=== PATIENT | female | born 1960 | race Hispanic/Latino ===

== ENCOUNTER 2022-09-09 13:28 | Emergency (ER) | payer BC, SELFPAY ==
[2022-09-09 13:42] VITALS: BP 116/68; PULSE 65; RESP 16; TEMP 36.6; O2SAT 100
--- NOTE | 2022-09-09 14:13 | ED.SKABFB ---
HPI - Skin/Abscess/Foreign Bdy General Chief complaint: Skin/Abscess/Foreign Body Stated complaint: Cough and rash on face since medication Time Seen by Provider: 09/09/22 14:13 Source: patient, RN notes reviewed and old records reviewed Mode of arrival: ambulatory Limitations: no limitations History of Present Illness HPI narrative: 61 year old female who presents to [facility] care with complaints of almost 2 week duration of red rash to her face mainly on cheeks and chin and one week duration of dry cough. Patient reports she saw grinding wheel facer about 2 weeks ago for follow up after having cardiac cath with stent placement a month ago, reports did not have rash at that time. Patient has not attempted to contact cardiology office since getting rash on face reports is itchy. Patient denies any new soap, makeup or any new foods or laundry products, reports concern it could be from new medications she is taking. Patient denies any shortness of breath or any wheezing, denies any difficulty with her breathing or swallowing. MD complaint: rash (face) Onset (ago): week(s) (2 weeks and cough for one week) Treatments prior to arrival: other (Vaseline to rash on face) Related Data Home Medications Medication Instructions Recorded Confirmed aspirin 81 mg chewable tablet 09/09/22 atorvastatin 80 mg tablet mg 09/09/22 carvedilol 3.125 mg tablet mg 09/09/22 metformin 500 mg tablet mg 09/09/22 ticagrelor 90 mg tablet (Brilinta) mg 09/09/22 Allergies Allergy/AdvReac Type Severity Reaction Status Date / Time albuterol Allergy Unknown INCREASE HR Verified 09/09/22 14:09 ASTHMA MED Allergy Unknown INCREASE HR Uncoded 09/09/22 14:09 Review of Systems Review of Systems: CONSTITUTIONAL: Denies fever, chills, or sweats. CARDIOVASCULAR: Denies chest pain, palpitations, or edema. RESPIRATORY: Positive for cough or dyspnea. SKIN: Reports red rash on cheek, chin and small area between eyes,is itchy MUSCULOSKELETAL: Denies joint pain or myalgia. NEUROLOGIC: Denies headache, numbness, or weakness. All systems reviewed & are unremarkable except as noted in HPI and below PMFSH Past Medical History Medical History (Updated 09/10/22 @ 07:12 by Silvia Quach NP) CAD (coronary artery disease) Diabetes Hyperlipidemia Hypertension Surgical History Surgical History (Updated 09/10/22 @ 07:06 by Silvia Quach NP) History of cardiac catheterization with one stent one month ago Social History Social History (Updated 09/10/22 @ 07:07 by Silvia Quach NP) Smoking status: Never smoker Alcohol intake: unknown Substance use type: does not use Gender identity (if verbalized by the patient): Female Comments At time of signature, agree with nursing past medical, surgical, social and family history. There is no relevant family history pertinent to the presenting complaint Exam Narrative: GENERAL: Well-appearing, well-nourished, and in no acute distress. HEAD: Normocephalic, atraumatic. EYES: PERRLA, conjunctivae clear, and EOMI. ENT: Mucous membranes moist. Oropharynx without edema, erythema or lesions. NECK: Supple. No lymphadenopathy CHEST: Clear to auscultation. No respiratory distress.dry cough reported no dyspnea, SAO2 100% on room air HEART: Regular rate and rhythm. SKIN: Warm, dry.? Patches of red raised erythema to bilateral facial cheeks,on chin, and small area between eyes on forehead NEURO:? Alert and oriented x3. PSYCH: Normal mood and affect Course Course Emergency Course: Patient is aware of diagnosis, understands and agrees to treatment plan.? Anticipatory guidance given.? Patient agrees to follow-up as directed and is aware of reasons to seek care at the emergency department. Portions of this record may have been created with voice recognition software Level of Care: Express Care Visit Vital Signs Vital signs: Vital Signs Temperature 36.6 C 09/09/22 13:42 Pulse Ra
== END 2022-09-09 14:46 | disposition home or self-care (01) ==
PROVIDERS: Emergency Provider Registered Nurse
DX: R21 Rash and other nonspecific skin eruption (principal); R05.9 Cough, unspecified; I25.10 Atherosclerotic heart disease of native coronary artery without angina pectoris; E11.9 Type 2 diabetes mellitus without complications; E78.5 Hyperlipidemia, unspecified; I10 Essential (primary) hypertension; Z79.82 Long term (current) use of aspirin
CPT/HCPCS: 99203; G0463